=== PATIENT | female | born 1940 | race Caucasian/White ===

== ENCOUNTER → 2023-04-04 06:20 | Day surgery (SDC) | payer OTHER, SELFPAY | LOC: GI 06:20 | PROVIDERS: ATTENDING PHYSICIAN Internal Medicine Gastroenterology; FAMILY PHYSICIAN Internal Medicine | DX: K52.832 Lymphocytic colitis (principal); K57.30 Diverticulosis of large intestine without perforation or abscess without bleeding; K64.8 Other hemorrhoids | CPT/HCPCS: 45380; 88305 ==

== ENCOUNTER → 2023-08-22 08:09 | Outpatient (REF) | payer OTHER, SELFPAY | LOC: HWRAD 08:09 | PROVIDERS: ATTENDING PHYSICIAN Internal Medicine Rheumatology; FAMILY PHYSICIAN Family Medicine | DX: Z12.31 Encounter for screening mammogram for malignant neoplasm of breast (principal); M81.0 Age-related osteoporosis without current pathological fracture | CPT/HCPCS: 77063; 77067; 77080 ==

== ENCOUNTER → 2024-06-18 09:12 | Outpatient (REF) | payer OTHER, SELFPAY | LOC: HWRAD 09:12 | PROVIDERS: ATTENDING PHYSICIAN Internal Medicine Rheumatology; FAMILY PHYSICIAN Family Medicine | DX: M50.30 Other cervical disc degeneration, unspecified cervical region (principal); M54.9 Dorsalgia, unspecified; M81.0 Age-related osteoporosis without current pathological fracture | CPT/HCPCS: 72072; 72110; 73030 ==

== ENCOUNTER 2024-08-15 22:28 | Emergency (ER) | payer OTHER, SELFPAY ==
[2024-08-15 22:29] VITALS: BP 159/71; BMI 20.8
[2024-08-15 22:48] LABS: % Basophils 0.7 % (0-2); % Eosinophils 2.2 % (0-6); % Immature Granulocytes 0.4 % (0-0.5); % Lymphocytes 28.8 % (20.5-51.1); % Monocytes 8.2 % (1.7-9.3); % Neutrophils 59.7 % (42.2-75.2); Absolute Eosinophils 0.1 10^3/uL (0-0.7); Absolute Lymphocytes 1.6 10^3/uL (1.2-3.4); Absolute Monocytes 0.4 10^3/uL (0.1-0.6); Absolute Neutrophils 3.2 10^3/uL (1.4-6.5); Mean Corp Hgb Conc. 32.4 g/dL (33.0-37.0); Mean Corpuscular Hgb 27.6 pg (27.0-31.0); Mean Corpuscular Volume 85.4 fL (81.0-99.0); Mean Platelet Volume 10.8 fL (7.4-10.4); Nucleated Red Blood Cells % 0 %; Platelet Count 189 10^3/uL (130-400); Red Blood Cell Count 3.98 10^6/uL (4.20-5.40); Red Cell Dist. Width 15.2 % (11.5-14.5); White Blood Cell Count 5.4 10^3/uL (4.8-10.8)
[2024-08-15 23:00] VITALS: BP 144/61
[2024-08-15 23:24] LABS: ALT (SGPT) 105 U/L (0-35); AST (SGOT) 83 U/L (14-36); Albumin 4.3 g/dl (3.5-5.0); Alkaline Phosphatase 102 U/L (38-126); Blood Urea Nitrogen 27 mg/dl (7-17); Calcium 9.2 mg/dl (8.4-10.2); Carbon Dioxide 23 mmol/L (22-30); Chloride 110 mmol/L (98-107); Estimated Creatinine Clearance 36 ml/min; Glucose 107 mg/dl (70-99); Potassium 3.9 mmol/L (3.5-5.1); Sodium 141 mmol/L (135-145); Total Bilirubin 0.4 mg/dl (0.2-1.3); Total Protein 7.2 g/dl (6.3-8.2); eGFR > 60.00
[2024-08-15] MEDS: NSS 1000 IV (23:48)
[2024-08-15] MEDS: TORADOL 15 MG IV (23:48)
--- NOTE | 2024-08-15 23:51 | ED.GENMED ---
History of Present Illness
General
Chief Complaint: Flank Pain
Time Seen by Provider: 08/15/24 22:55
History of Present Illness
History of Present Illness:
84-year-old female with history of hyperlipidemia and hypothyroidism presenting to the emergency department with urinary symptoms and right-sided flank and abdominal pain. Patient reports for the past several days she has been having some urgency
and some dysuria. She went to urgent care 3 days ago, was diagnosed with a UTI and started on Macrobid. She reports that her symptoms have been worsening. She is feeling generally weak, chills, right-sided flank and abdominal pain. Notes history
of UTIs in the past. Denies any vomiting. Denies changes in stool. Denies any significant surgeries to the abdomen. Denies additional acute medical complaints
Past History
Past History
ED Past Surgical History: Appendectomy, Cholecystectomy, Gynecological and Other
Social History
Tobacco: Non-smoker
Living: alone
Employment: Retired
Phy Exam
Physical Exam
Physical Exam:
General: Well-appearing, no clinical signs of dehydration, nontoxic and in no acute distress
HEENT: protecting airway
Neck: appears supple
CV: Normal heart rate, regular rhythm
Resp: No accessory muscle use, no increased work of breathing, lungs clear to auscultation bilaterally
Abd: Soft and non-distended, mild tenderness to the right side of the abdomen in the right flank without rebound or guarding
Extremities: No deformities, no swelling
Neuro: alert, no focal neurologic deficit
: deferred
Rectal: deferred
Psych: Normal affect
Skin: Intact
Course
Orders/Labs/Results
Orders:
Orders
08/15/24 22:40
Complete Blood Count/With Diff Urgent
Comprehensive Metabolic Panel Urgent
08/15/24 23:35
Urinalysis Reflex To Culture Urgent
Date Specimen was Collected: 08/15/24
Time Specimen was Collected: 23:33
Urine Microscopic Reflex Cult Urgent
08/15/24 23:38
0.9% Sodium Chloride 1000 ml [Nss] 1,000 ml IV BOLUS
Ketorolac [Toradol] 15 mg IV NOW STA
08/16/24 00:29
CT Abd/pelvis W Iv Cont Urgent
Reason For Exam: R-flank pain, recent diagnosis kidney stone
Abnormal Lab Results
08/15/24 08/15/24
22:40 23:35
RBC 3.98 L 10^6/uL
(4.20-5.40)
Hgb 11.0 L g/dL
(12.0-16.0)
Hct 34.0 L %
(37.0-47.0)
MCHC 32.4 L g/dL
(33.0-37.0)
RDW 15.2 H %
(11.5-14.5)
MPV 10.8 H fL
(7.4-10.4)
Chloride 110 H mmol/L
(98-107)
BUN 27 H mg/dl
(7-17)
Glucose 107 H mg/dl
(70-99)
AST 83 H U/L
(14-36)
ALT 105 H U/L
(0-35)
Ur Occult Blood Reflex 3+ A
(Negative)
Urine RBC 7-10 A /HPF
(0-2)
Urine Bacteria (Reflex) Few A
(Negative)
08/15/24 22:40
08/15/24 22:40
Vital Signs
Initial and Last Documented VS:
Initial Vital Signs
Temp Pulse Resp BP Pulse Ox
97.7 F 79 20 159/71 97
08/15/24 22:29 08/15/24 22:29 08/15/24 22:29 08/15/24 22:29 08/15/24 22:29
Last Documented Vital Signs
Temp Pulse Resp BP Pulse Ox
97.7 F 64 15 143/74 100
08/15/24 22:29 08/16/24 01:15 08/16/24 01:15 08/16/24 01:00 08/16/24 01:15
MDM/Problems Addressed
MDM/Problems Addressed:
84-year-old female with history of hyperlipidemia and hypothyroidism presenting to the emergency department for right-sided flank pain, weakness, urinary symptoms. Vital signs on arrival are significant for mild hypertension.
On exam patient resting comfortably, no acute distress or discomfort. Benign cardiac and pulmonary exam. On abdominal exam, mild tenderness to the right side of the abdomen in the right flank. Suspect possible ascending urinary tract infection.
Notes that she was recently diagnosed with a UTI, started on Macrobid, however has not been feeling any better. Notes some chills, however currently afebrile, nontoxic with lower suspicion for sepsis. Given age, plan for laboratory analysis, CT
imaging, urinalysis. IV fluids and Toradol administered for symptoms.
02:00 -urine without any sign of infection. No leukocytosis. CT shows questionable small stone at the distal right UVJ with mild right hydroureter. Peers consistent with patient's symptoms. Also evidence of cholecystectomy with mildly dilated
CBD, acting chronic postsurgical changes. No significant tenderness to the right upper quadrant. There is also evidence of some wall thickening in the distal half of the colon which patient notes she is aware of. Otherwise no concerning findings.
Patient notes she is overall feeling better and feels well enough to go home. Will start patient on Flomax and provide a urine hat. Otherwise advise close follow-up with urologist for continued outpatient pain control with ibuprofen. Return
precautions discussed and patient verbalized understanding
*Pulse Oximetry
SaO2: 97
Oxygen Mode of Delivery: Room air
*Critical Care Note
Total Time (30-74mins, 75-104mins- exclusive of procedures): Not Applicable
ED Attending Note
-
Portions of this chart may have been created with voice recognition software.� Occasional wrong word or��sound alike� substitutions may have occurred due to the inherent limitations of voice recognition software.
Discharge Plan
Departure
Prescriptions:
No Action
levothyroxine 88 MCG tablet
88 mcg PO MOTUWETHFRSA
clonazepam 1 MG tablet
1 mg PO HS
Patient Comments:
06/01/2020: last filled 03/13/20, 90 tabs for 90 days from [facility]
cyanocobalamin (vitamin B-12) 1,000 MCG tablet
5,000 mcg PO MOFR
melatonin 3 MG tablet
3 mg PO HS
levothyroxine 88 MCG tablet
44 mcg PO LOPEZ
aspirin 81 MG tablet,chewable
81 mg PO DAILY
rosuvastatin 5 MG tablet
5 mg PO DAILY
mirtazapine 7.5 MG tablet
7.5 mg PO HS
cholecalciferol (vitamin D3) 1,000 UNITS tablet
1,000 units PO DAILY
Referrals:
UNKNOWN - PT DOES,NOT KNOW [Family Provider]
Interventions
Interventions:
*Risk Screen - Suicide Last Done: 08/15/24 22:29
*General Assessment Last Done: 08/15/24 22:29
*Neglect/Abuse Screening Last Done: 08/15/24 22:29
*ED- Fall Risk Assessment Last Done: 08/15/24 22:29
*ED COVID-19 Vaccine History Last Done: 08/15/24 22:29
XO-Gcuvea-Uwbgmmgdzl Assessment Last Done: 08/15/24 22:37
ED-Female Genitourinary Assessment Last Done: 08/15/24 22:37
Discharge Date and Time
Print Language: KENYAN
[2024-08-15 23:54] LABS: Urine Albumin Negative (Neg - Trace); Urine Bilirubin Negative (Negative); Urine Character Clear (Clear); Urine Glucose Negative (Negative); Urine Ketone Negative (Negative); Urine Leukocyte Negative (Negative); Urine Nitrite Negative (Negative); Urine Occult Blood 3+ (Negative); Urine Specific Gravity 1.005 (<1.030); Urine Urobilinogen Negative (Neg - 1+)
[2024-08-15 23:55] LABS: Urine Color Straw
[2024-08-16] VITALS: BP 143/72
[2024-08-16 00:18] LABS: Urine Bacteria Few (Negative); Urine Squamous Cell 0-2 /LPF (Few); Urine White Cell 0-2 /HPF (0-5)
[2024-08-16 01:00] VITALS: BP 143/74
[2024-08-16 02:00] VITALS: BP 138/76
[2024-08-16] MEDS: FLOMAX 0.4 MG PO (02:24)
== END 2024-08-16 05:31 | disposition home or self-care (01) ==
LOC: EMR 22:28
PROVIDERS: EMERGENCY PHYSICIAN Student in an Organized Health Care Education/Training Program; FAMILY PHYSICIAN Internal Medicine
DX: N13.2 Hydronephrosis with renal and ureteral calculous obstruction (principal); E78.5 Hyperlipidemia, unspecified; E03.9 Hypothyroidism, unspecified; R03.0 Elevated blood-pressure reading, without diagnosis of hypertension
CPT/HCPCS: 99285; 96374; 96361; 74177; 80053; 81003; 81015; 85025; Q9967

== ENCOUNTER → 2024-08-26 08:38 | Outpatient (REF) | payer OTHER, SELFPAY | LOC: HWRAD 08:38 | PROVIDERS: ATTENDING PHYSICIAN Surgery; FAMILY PHYSICIAN Internal Medicine | DX: N13.2 Hydronephrosis with renal and ureteral calculous obstruction (principal) | CPT/HCPCS: 74176 ==

== ENCOUNTER → 2024-11-23 12:07 | Outpatient (REF) | payer OTHER, SELFPAY | LOC: HWWDC 12:07 | PROVIDERS: ATTENDING PHYSICIAN Internal Medicine | DX: Z12.31 Encounter for screening mammogram for malignant neoplasm of breast (principal) | CPT/HCPCS: 77063; 77067 ==

== ENCOUNTER 2024-11-26 10:20 | Emergency (ER) | payer OTHER, SELFPAY ==
[2024-11-26 10:23] VITALS: BP 154/79
--- NOTE | 2024-11-26 11:13 | ED.GENMED ---
History of Present Illness
General
Chief Complaint: Skin Problem
Source: patient
Exam Limitations: none
Time Seen by Provider: 11/26/24 11:00
History of Present Illness
History of Present Illness:
84yoF with a history of hypothyroidism and hyperlipidemia presenting with her daughter for evaluation of a rash. Symptoms began 4 days ago with a red rash to her left wrist. Rash initially started after wearing a new watch. The rash then spread
to her right wrist 2 days later. The rash on her left wrist is slightly itchy with a burning discomfort. She had leftover triamcinolone cream which she has been applying without relief. She went to her PCP yesterday and was prescribed
betamethasone 0.05% cream which she has not filled yet. She woke up this morning and noticed the rash spread to her abdomen. She states she feels 'off' but is unable to elaborate on this further. She denies any oral lesions, fevers, vomiting,
diarrhea, shortness of breath, headache.
Past History
Past History
ED Past Surgical History: Appendectomy, Cholecystectomy, Gynecological and Other
Social History
Tobacco: Non-smoker
Living: alone
Employment: Retired
Phy Exam
General Physical Exam
General Presentation: well appearing and no apparent distress
General Skin: warm and dry
General Habitus: normal and elderly
General Mental: alert
ENT Exam
ENT Exam: normocephalic
Cardiovascular Exam
Cardiovascular Exam: regular rate/rhythm
Pulmonary Exam
Pulmonary Exam: lungs clear, no respiratory distress, no rales, no crackles, no rhonchi and no wheezing
Neurological Exam
Neurological Exam: alert
Marrero Coma Scale
Eye Opening: Spontaneous
Verbal Response: Oriented
Motor Response: Obeys Commands
GCS Total Score: 15
Skin Exam
Skin Exam: warm/dry and other (Erythema/skin irritation noted to bilateral forearms. Two circular red lesions noted on trunk. No signs of cellulitis. No skin sloughing. No mucosal involvement. )
Psychiatric Exam
Psychiatric Exam: normal mood/affect
Course
Vital Signs
Initial and Last Documented VS:
Initial Vital Signs
Temp Pulse Resp BP
97.5 F 83 16 154/79
11/26/24 10:23 11/26/24 10:23 11/26/24 10:23 11/26/24 10:23
Last Documented Vital Signs
Temp Pulse Resp BP
97.5 F 83 16 154/79
11/26/24 10:23 11/26/24 10:23 11/26/24 10:23 11/26/24 10:23
MDM/Problems Addressed
Differential Diagnosis Includes:
84yoF here with a rash x 4 days. Initially started in the L wrist after wearing a new watch on the L wrist. Rash has now spread to R wrist and trunk. Saw PCP yesterday and prescribed betamethasone cream but has not started this yet. Feels 'off' but
denies any other specific symptoms. No f/c. VSS. She is well appearing in no distress. Exam is consistent with a nonspecific dermatitis. No evidence of cellulitis or fungal infection.
Patient advised to start the steroid cream as prescribed by her PCP and monitor response. The earliest appt for dermatology that she was able to get is in February. ED return precautions reviewed and patient discharged in stable condition.
*Pulse Oximetry
Patient hypoxic: no
*Critical Care Note
Total Time (30-74mins, 75-104mins- exclusive of procedures): Not Applicable
ED Attending Note
-
Portions of this chart may have been created with voice recognition software.� Occasional wrong word or��sound alike� substitutions may have occurred due to the inherent limitations of voice recognition software.
Discharge Plan
Departure
Patient Disposition: Home (Routine Discharge)
Date of Disposition: 11/26/24
Time of Disposition: 11:25
Patient with high blood pressure during this ER visit?: No
Discharge Problem:
Dermatitis
Instructions: Skin Rash (DC)
Prescriptions:
No Action
levothyroxine 88 MCG tablet
88 mcg PO MOTUWETHFRSA
clonazepam 1 MG tablet
1 mg PO HS
Patient Comments:
06/01/2020: last filled 03/13/20, 90 tabs for 90 days from [facility]
cyanocobalamin (vitamin B-12) 1,000 MCG tablet
5,000 mcg PO MOFR
melatonin 3 MG tablet
3 mg PO HS
levothyroxine 88 MCG tablet
44 mcg PO LOPEZ
aspirin 81 MG tablet,chewable
81 mg PO DAILY
rosuvastatin 5 MG tablet
5 mg PO DAILY
mirtazapine 7.5 MG tablet
7.5 mg PO HS
cholecalciferol (vitamin D3) 1,000 UNITS tablet
1,000 units PO DAILY
tamsulosin [Flomax] 0.4 mg capsule
0.4 mg PO DAILY 7 Days Qty: 7 0RF
ibuprofen 600 mg tablet
600 mg PO Q8H PRN (Reason: Pain) 5 Days Qty: 15 0RF
Referrals:
Crista Telles MD [Consulting Staff, Dermatology]
Activity Restrictions/Additional Instructions:
Start using the betamethasone cream as prescribed by your family doctor.
Please follow-up with your family doctor and dermatology. Return to the ER with any new or worsening symptoms including fevers.
Interventions
Interventions:
*Risk Screen - Suicide Last Done: 11/26/24 10:23
*General Assessment Last Done: 11/26/24 11:25
*Neglect/Abuse Screening Last Done: 11/26/24 10:23
*ED- Fall Risk Assessment Last Done: 11/26/24 11:25
*Nursing Disposition Last Done: 11/26/24 11:25
ED-Skin Assessment Last Done: 11/26/24 11:25
Discharge Date and Time
Discharge Date/Time: 11/26/24 11:26
Print Language: THAI
== END 2024-11-26 11:26 | disposition home or self-care (01) ==
LOC: EMR 10:20
PROVIDERS: EMERGENCY PHYSICIAN Emergency Medicine; FAMILY PHYSICIAN Internal Medicine
DX: L30.9 Dermatitis, unspecified (principal); E03.9 Hypothyroidism, unspecified; E78.5 Hyperlipidemia, unspecified; Z90.49 Acquired absence of other specified parts of digestive tract
CPT/HCPCS: 99282